=== PATIENT | female | born 1985 | race Caucasian/White ===

== ENCOUNTER 2025-06-30 19:05 | Emergency (ER) | payer OTHER, SELFPAY ==
--- OUTSIDE RECORDS SUMMARY | 2006-08-27 05:25 | XMS_ITS | Continuity of Care Document ---
Author Organization [facility] Address [address] [place] [phone] Phone Care Team Providers Care Transportation Driver Name Role Phone Vilma HATHAWAY, Janine Unavailable Unavaila ble Advance Directives Directive Yes / No Effective Date File Name No Information Encounters Encounter Description Practice Location Reason(s) For Visit Diagnoses Date Provider Providers Copied on Encounter [facility], [address] [place] [address], [id number], tel:[phone] [facility] No Information Vilma Mehta. [address], [place], [id number]. tel:[phone] Family History Family Member Type Diagnosis Age At Onset No Information Payers Payer name Insurance type Covered alliance party ID Authoriza tion(s) No Information Social History Type Description Quantity Date Captured Comments Sex Female Smoking Status No Information Chief Complaint And Reason For Visit No Information Reason For Referral Reason For Referral No Information History Of Present Illness Encounter Date Complaint History Of Prese nt Illness No Information Functional Status Date Functional Assessmen t No Information Instructions Date Instruction Additional Infor mation No Information Assessments Type Assessment Date No Information Patient Care Teams Name Effective Dates (start - stop) Status Members No Information
--- OUTSIDE RECORDS SUMMARY | 2025-03-22 09:30 | XMS_ITS ---
Author Organization [facility] Address [address] [place] [address] Care Team Providers Care Baseball Coach Name Role Phone Tolu Jackson Primary Care Provider Radha Angel [phone] REASON FOR VISIT pain in lower right abdomen Social History Sex Assigned At : Social History Observation Description Sex Assigned At Female Encounters Encounter Location Date Provider Diagnosis [facility] [address] [place] [address] 03/22/2025 Radha Angel Plan Of Treatment No Information Progress Notes * GURVINDER Melissa LDOB:1985 (39 yo F)Acc No.[id number]:03/22/2025 Progress Notes Patient: Sondra jannet Melissa Maria Provider: Sondra Angel Nurse Practitioner :1985 A ge:39 Y S ex:Female Date:03/22/2025 Address:[address] [place], [place] [id number] Pcp:Tolu Jackson Subjective: * Chief Complaints: * P ain in lower right abdomen * Electronic signature of KALEIGH Mendoza on 06/30/2025 at 07:11 PM INSTRUMENT/CONTROL TECHNICIAN Sign off status: Pending * Provider: Sondra Angel Nurse Practitioner Date: 0 03/22/2025 Generated for Printing/Faxing/eTransmitting on: 1 08/30/2024 07:11 PM INSTRUMENT/CONTROL TECHNICIAN
--- OUTSIDE RECORDS SUMMARY | 2025-04-06 09:40 | XMS_ITS ---
Author Organization [facility] Address [address] [place] [address] Care Team Providers Care Costume Cutter Name Role Phone Tolu Jackson Primary Care Provider [phone] Radha Angel [phone] REASON FOR VISIT pain in lower right abdomen Social History Sex Assigned At : Social History Observation Description Sex Assigned At Female Encounters Encounter Location Date Provider Diagnosis [facility] [address] [place] [address] 04/06/2025 Radha Angel Plan Of Treatment No Information Progress Notes * GURVINDER Melissa LDOB:1985 (39 yo F)Acc No.[id number]:04/06/2025 Progress Notes Patient: Sondra mohanraul Melissa Maria Provider: Sondra Angel Nurse Practitioner :1985 A ge:39 Y S ex:Female Date:04/06/2025 Address:[address] [place], [place] [address] [place] [id number] Pcp:Tolu Jackson Subjective: * Chief Complaints: * P ain in lower right abdomen Billing Information: * Procedure Codes: * Electronic signature of KALEIGH Mendoza on 06/30/2025 at 07:11 PM RIPSAW GRADER Sign off status: Pending * Provider: Sondra Angel Nurse Camilla Date: 0 04/06/2025 Generated for Printing/Faxing/eTransmitting on: 08/30/2024 07:11 PM RIPSAW GRADER
[2025-06-30 19:10] VITALS: BP 126/93; PULSE 102; RESP 16; TEMP 36.6; O2SAT 98
--- NOTE | 2025-06-30 19:12 | XRR_ITS ---
PROCEDURE INFORMATION: Exam: XR Left Forearm Exam date and time: 06/30/2025 7:19 PM Age: 39 years old Clinical indication: Injury or trauma; Other: Dog bite; Puncture; Arm, lower; Left TECHNIQUE: Imaging protocol: Radiologic exam of the left forearm. Views: 2 views. COMPARISON: No relevant prior studies available. FINDINGS: Bones/joints: See Soft tissues finding. Soft tissues: Soft tissue swelling over the dorsum of the mid forearm without radiodense foreign body, fracture or dislocation. XR/XR forearm LT 2V [id number] IMPRESSION: Soft tissue swelling over the dorsum of the mid forearm without radiodense foreign body, fracture or dislocation.
--- OUTSIDE RECORDS SUMMARY | 2025-06-30 19:12 | XMS_ITS | Patient Health Record ---
Author Organization [facility] Address [address] [place] [address] Care Team Providers Care Roof Truss Detailer Name Role Phone Tolu Jackson Primary Care Provider Radha Angel Unavailable [phone] Allergies Allergen (clinical drug ingredient) Drug/Non Drug Allergy documented on EMR Reaction Allergy Type Onset Date Status Keflex Unknown Drug Allergy Active metoclopramide Reglan Unknown Drug Allergy Ac tive quetiapine SEROquel Unknown Drug Allergy Active Codeine (allergy only) anaphylaxis Drug Allergy Active Flu Virus Vaccine Unknown Drug Allergy Active Reason For Referral No Information Medications Medication SIG (Take, Route, Frequency, Duration) Notes Start Date End Date Status Lyrica 150 MG Capsule 1 capsule Orally Three Times a day Active Tylenol 325 MG Tablet 2 tablets as needed Orally every 6 hrs Active ProAir HFA 108 (90 Base) MCG/ACT Aerosol Solution 2 puffs as needed Inhalation every 6 hrs; Duration: 30 days 10/05/2017 Active dexAMETHasone Sodium Phosphate 10 MG/ML Solution 1 ml now Injection one time; Duration: 1 days 04/02/2020 Not-Taking/ PRN Escitalopram Oxalate 10 mg Tablet TAKE ONE TABLET BY MOUTH ONCE DAILY; Duration: 90 Active Cyclobenzaprine HCl 5 MG Tablet 1 tablet Orally twice a day or prn for muscle spasms. Dr Gonzalez Not-Taking/ PRN predniSONE 20 MG Tablet 1 tablet Orally Once a day 5 days Active Meloxicam 7.5 mg Tablet TAKE ONE TABLET BY MOUTH ONCE DAILY; Duration: 30 Active Promethazine-DM 6.25-15 MG/5ML Syrup 5 mL as needed Orally every 6 hrs up to 7 days prn Active Fluconazole 150 MG Tablet 1 tablet Orally once 04/22/2021 Not-Taking/ PRN Vibramycin 100 MG Capsule 1 capsule Orally Once a day Active Gabapentin 600 MG Tablet 1 tablet Orally Three time daily; Duration: 30 day(s) Patient is receiving 600mg TID from back doctor. Patient is taking 3600mg QD Not-Taking/ PRN Fluticasone Propionate 50 MCG/ACT Suspension 1 spray in each nostril Nasally Once a day; Duration: 30 day(s) Not-Taking/ PRN Triamcinolone Acetonide 0.5 % Cream 1 application Externally Twice a day; Duration: 14 days 07/07/2022 Not-Taking/ PRN DULoxetine HCl 30 MG Capsule Delayed Release Particles 1 capsule Orally once daily Active Percocet 5-325 MG Tablet 1 tablet as needed Orally every 4 hrs as needed for moderate or severe pain Dr Gonzalez Not-Taking/ PRN Immunizations Vaccine Route Administration Date [facility] [employer] Cov[facility] Vaccine IM Intramuscular 01/09/2021 Administered Social History Tobacco Use: Social History Observation Description Date Details (start date - stop date) Never Smoker NA - NA Sex Assigned At : Social History Observation Description Sex Assigned At Female Social History Miscellaneous: Social Info Question Answer Notes . 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 No Drugs/Alcohol: Social Info Question Answer Notes Alcohol Screen (Audit-C) Did you have a drink containing alcohol in the past year? No Points 0 Interpretation Negative Drugs Have you used drugs other than those for medical reasons in the past 12 months? No DO NOT USE SBIRT 2014 Patient refused/declined SBIRT s creening at this time? No In the past 3 months, how often do you have a drink containing alcohol? Never In the past 3 months, how often do you have 4 or more drinks on one occasion? Females (and Males 65 and older). In the past 3 months, how often do you have 5 or more drinks on one occasion? Males (younger than 65) Never In the past 12 months, did you smoke pot, use another street drug, or use a prescription painkiller, stimulant, or sedative for a non-medical reason? No The cumulative score is 0 A referral is not needed Caffeine Intake: more than 4 cups per day Comprehensive Health Assessm ent Social Info Question Answer Notes Comprehensive Health Assessment Assistance with drug cost? No Assistance with food cost? No Any communication needs? No Any High risk behaviors ? No Any Mental health issues? Yes Any substance abuse ? No Problems understanding meds or dx ? No Has been referred for Comp. Care Plan? No Drug/Alcohol: Social Info Question Answer Notes AUDIT-C (Standard) Did you have a drink containing alcohol in the past year? No Points 0 Interpretation Negative Tobacco Use: Social Info Question Answer Notes Tobacco Control (Standard) Tobacco use: Nonsmoker Are you an ENDS user: Are you an other tobacco user? Y es Electronic Nicotine Delivery System Yes Not to use -Tobacco Use/Smoking Are you a former sm oker How long has it been since you last smoked? 1-5 years Problems Problem Type SNOMED Code ICD Code Onset Dates Problem Status W/U Status Risk Notes Problem Sciatica (43469563) Sciatica (M54.30) Active confirmed Problem Neuropathy (296274554) Neuropathy (G62.9) Active confirmed Problem Sinusitis (06031232) Sinusitis (J32.9) Active confirmed Problem Anxiety (64623264) Anxiety (F41.9) Active confirmed Since las t seen, pt fired from job, pt relates stress has been lifted from shoulders and anxiety is much improved Problem Menopause (224342368) Hot flashes (N95.1) Active confirmed Problem Smoking (13371498) Smoking (F17.200) Active confirmed Low Referred to handoff for inclinic smoking cessation initiation with 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 AND INSTALLER Problem Exacerbation of asthma (845021395) Unspecified asthma with (acute) exacerbation (J45.901) Active confirmed Problem Mixed hyperlipidemia (421722348) Elevated triglycerides with high cholesterol (E78.2) Active confirmed Triglycerides at 1112 with total cholesterol of 310 on recent lab draw Problem Carpal tunnel syndrome of right wrist (027239743514752 ) Carpal tunnel syndrome of right wrist (G56.01) Active confirmed Problem Depressive disorder (disorder) (52920162) Depression, unspecified depression type (F32.9) Active confirmed Problem Obese class I (finding) (433002814703959 ) Obesity (BMI 30.0-34.9) (E66.9) Active confirmed BMI 32.18 Problem Insomnia (614743909) Insomnia, unspecified type (G47.00) Active confirmed Encounters Encounter Location Date Provider Diagnosis [facility] [address] [place] [address] 07/18/2024 Tolu Jackson [address] [facility] [address] [place] [address] 08/25/2024 Tolu Jackson Plan Of Treatment No Information Insurance Providers Payer Name Payer Address Payer Phone Subscriber Number Group Number Insured Name Patient Relationship to Insured Coverage Start Date Coverage End Date [employer] [address] [address] [place] [address] [id number] Melissa Hollins Self - patient is the insured [facility] [address] [place] [address] [id number] Abram Hollins Spouse - patient is the spouse of the insured Medications Administered Medication Instructions Date of Administration Dosage Notes Dexamethasone 10mg 04/02/2020 10 mg Ketorolac 60mg 01/09/2021 60 mg Ketorolac Tromethamine 06/29/2019 2 mL Methylprednisolone 80mg 04/02/2020 80 mL Ondansetron 4mg/2ml 10/13/2019 4 mg Solu-Medrol 125 mg 10/09/2019 125 mg Medical (General) History Medical History History ICD Code Depression, unspecified depression type F32.9 asthma anemia Smoking Allergic rhinitis, unspecifi ed allergic rhinitis trigger, unspecified rhinitis seasonality J30.9 Anxiety F41.9 Dermatitis Acute recurrent maxillary sinusitis Sprain of anterior talofibular ligament of left ankle, initial encounter Other closed fracture of distal end of l eft fibula, initial encounter Surgical History Surgery Date(Month/Year) exploratory surgery salvatory gland 1989 bilateral ankle surgery 2000 2013 D C for retained placenta 2013 biopsy at [facility] ft breast begin results right shoulder 11/2017 carpal tunnel release right 2019 lumbar fusion 03/2022 right mastectomy 10/2022 Hospitalization History Reason Date(Month/Year) lumbar fusion 03/2022 Dizzy passing out 05/2018 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
--- NOTE | 2025-06-30 19:16 | W.ED.ANIMALB ---
Documented by User: SHANNON Hagan 06/30/25 20:23 HPI - Animal Bite General: Chief Complaint: Animal Bite Stated Complaint: DOG ATTACKED Time Seen by Provider: 06/30/25 19:09 Source: patient Mode of arrival: EMS Limitations: no limitations History of Present Illness: Patient is a 39-year-old female presenting to the emergency department by ambulance due to a dog bite from a pit bull just prior to arrival. States that dog was unprovoked and attacked her, biting her to her left arm and scratching her left thigh and side. No active bleeding at this time. Patient is very irritable and a poor historian. Reportedly smoking weed during this incident. States that she is unsure of dog's vaccination status, and unsure where it is at right now. Again she is a poor historian so we will go ahead and begin rabies vaccination series. She does tell me that her tetanus is up-to-date. No sensation changes to distal left arm, full range of motion. No motor deficits. MD complaint: animal bite Onset (ago): minute(s) Animal: dog Mechanism: bite and scratch Location: abdomen Location - Extremities: Left: forearm and thigh Associated symptoms: Deny chills, fever(s) or headache(s) Related Data Previous Rx's ?Medication ?Instructions ?Recorded amoxicillin 875 mg-potassium 1 tab PO BID 5 days #10 tabs 06/30/25 clavulanate 125 mg tablet Allergies Allergy/AdvReac Type Severity Reaction Status Date / Time cephalexin (From Keflex) Allergy Unknown Verified 06/30/25 19:13 codeine Allergy Unknown Verified 06/30/25 19:13 influenza virus vaccine ts Allergy Unknown Verified 06/30/25 19:13 [id number] (36 mos,up) (From Fluarix) metoclopramide (From Reglan) Allergy Unknown Verified 06/30/25 19:13 quetiapine (From Seroquel) Allergy Unknown Verified 06/30/25 19:13 Review of Systems General: Reports: 10 or more systems reviewed and unremarkable except in HPI and below Const: Denies: fever(s) or chills Card: Denies: chest pain Resp: Denies: dyspnea GI: Denies: abdominal pain, nausea, vomiting or diarrhea Musc: Denies: extremity pain or joint pain Skin/Breast: Reports: erythema, skin pain, skin tenderness, skin swelling and new lesions (Dog bite left arm, dog scratch left thigh and left side); Denies: rash Neuro: Denies: headache(s) Physical Exam Const: COMMON NORMALS: no limitations and well nourished OTHER: Tearful, irritable HENMT: COMMON NORMALS: normocephalic and atraumatic HEAD & SCALP: normocephalic and atraumatic Neck/C-Spine: COMMON NORMALS: full ROM, no lymphadenopathy, supple and no meningeal signs Extremity: COMMON NORMALS: full ROM and capillary refill normal NARRATIVE EXTREMITY EXAM: Strength and stations intact distal to the wound to the left upper extremity Neuro: COMMON NORMALS: moves all extremities, no focal motor deficits and no sensory deficits noted MENINGEAL SIGNS: Yes no meningeal signs Skin: COMMON NORMALS: turgor normal NARRATIVE SKIN EXAM: Scattered dog bite lesions to left forearm with underlying skin swelling and erythema Scratch to left thigh and left flank/abdomen GENERAL SKIN EXAM: turgor normal Course Vital Signs: Vital signs: Vital Signs Temperature 98 F 06/30/25 19:10 Pulse Rate 82 06/30/25 20:26 Respiratory Rate 16 06/30/25 19:10 Blood Pressure 110/81 06/30/25 20:26 Pulse Oximetry 100 06/30/25 20:26 Oxygen Delivery Me thod Room Air 06/30/25 20:25 MDM - Animal Bite Medical Decision Making Patient presented after being bit by family members sylvie, up-to-date on vaccinations reportedly and able to be monitored. The wounds to the left forearm are overall superficial and will close by secondary intent, thoroughly irrigated here in the emergency department with 2 L of normal saline. Sterile dressings are applied, and her tetanus was already up-to-date. Will start on prophylactic Augmentin, informed of how to care for the wounds at home and signs and symptoms to watch for that would warrant return to the ED. Will omit rabies vaccination series due to the ability to be monitored and reportedly up-to-date vaccines of the dog. Lab Data Radiology Impressions Forearm X-Ray 06/30/25 19:12 IMPRESSION: Soft tissue swelling over the dorsum of the mid forearm without radiodense foreign body, fracture or dislocation. XR interpretation done by ED provider, pending radiology final review ED provider radiology interpretation(s): No abnormalities on x-ray left forearm. Discharge Plan Discharge Patient Disposition: Home Clinical Impression: Dog bite Qualifiers: Encounter type: initial encounter Qualified Code(s): W54.0XXA - Bitten by dog, initial encounter Condition: Stable Prescriptions: New amoxicillin-pot clavulanate 875-125 mg tablet 1 tab PO BID 5 Days Qty: 10 0RF Discharge Orders: Discharge ED (Routine); Ordered 06/30/25 Ordered By: Meño Ray Referrals: Rosalba Gomez FNP [Primary Care Provider, Nurse Practitioner] Patient Instructions: Patient Portal & Edilberto Instructions Activity Restrictions/Additional Instructions: Dog Bite Discharge Instructions You were treated today for a dog bite to your left arm. Your wound was cleaned and closed, and you are being sent home with antibiotics to help prevent infection. Please follow these instructions carefully: - Wound Care: Keep the wound clean and dry. You may gently wash the area with soap and water once daily, but avoid scrubbing. Pat dry and cover with a clean bandage. Change the bandage daily or if it becomes wet or dirty.Watch for signs of infection, such as increased redness, swelling, warmth, pus, or worsening pain. - Antibiotics: Take amoxicillin-clavulanate (Augmentin) as prescribed, twice daily for 5 days. Finish the entire course, even if you feel better. If you develop diarrhea, rash, or any allergic reaction, contact your healthcare provider. - Pain and Swelling: You may use acetaminophen or ibuprofen for pain, unless otherwise instructed. Elevate your arm to reduce swelling. - Signs to Watch For: Call your doctor or return to the emergency department if you notice: - Fever over 100.4?F (38?C) - Spreading redness or swelling - Pus or foul odor from the wound - Numbness, loss of movement, or increasing pain - Red streaks moving up your arm - Rabies and Tetanus: The dog is being monitored and is believed to be up-to-date on vaccinations, so rabies shots are not needed at this time. If the dog becomes sick or cannot be observed, notify your healthcare provider immediately. If you have not had a tetanus shot in the past 5 years, you may need a booster. - Follow-Up: Schedule a follow-up visit with your healthcare provider in 48 hours, or sooner if you have any concerns. This is important to check for infection and ensure proper healing. - Other Instructions: Avoid strenuous activity with the affected arm until cleared by your provider. Do not allow pets to lick the wound. If you have any questions or concerns, contact your healthcare provider or return to the emergency department. Print Language: Montserratian Coding Level of Care Code ED Vmware Administrator for [facility]ando Fwd Documented by User: Josiah Galindo DO 07/01/25 03:39 HPI - Animal Bite General: Chief Complaint: Animal Bite Stated Complaint: DOG ATTACKED Time Seen by Provider: 06/30/25 19:09 Related Data Previous Rx's ?Medication ?Instructions ?Recorded amoxicillin 875 mg-potassium 1 tab PO BID 5 days #10 tabs 06/30/25 clavulanate 125 mg tablet Allergies Allergy/AdvReac Type Severity Reaction Status Date / Time cephalexin (From Keflex) Allergy Unknown Verified 06/30/25 19:13 codeine Allergy Unknown Verified 06/30/25 19:13 influenza virus vaccine ts Allergy Unknown Verified 06/30/25 19:13 [id number] (36 mos,up) (From Fluarix) metoclopramide (From Reglan) Allergy Unknown Verified 06/30/25 19:13 quetiapine (From Seroquel) Allergy Unknown Verified 06/30/25 19:13 Course Vital Signs: Vital signs: Vital Signs Temperature 98 F 06/30/25 19:10 Pulse Rate 82 06/30/25 20:26 Respiratory Rate 16 06/30/25 19:10 Blood Pressure 110/81 06/30/25 20:26 Pulse Oximetry 100 06/30/25 20:26 Oxygen Delivery Me thod Room Air 06/30/25 20:25 MDM - Animal Bite Medical Decision Making Patient presented after being bit by family members sylvie, up-to-date on vaccinations reportedly and able to be monitored. The wounds to the left forearm are overall superficial and will close by secondary intent, thoroughly irrigated here in the emergency department with 2 L of normal saline. Sterile dressings are applied, and her tetanus was already up-to-date. Will start on prophylactic Augmentin, informed of how to care for the wounds at home and signs and symptoms to watch for that would warrant return to the ED. Will omit rabies vaccination series due to the ability to be monitored and reportedly up-to-date vaccines of the dog. Patient originally seen by Mr. Flor PA-C. I agree with his history, evaluation, and management. Lab Data Radiology Impressions Forearm X-Ray 06/30/25 19:12 IMPRESSION: Soft tissue swelling over the dorsum of the mid forearm without radiodense foreign body, fracture or dislocation. Discharge Plan Discharge Patient Disposition: Home Clinical Impression: Dog bite Qualifiers: Encounter type: initial encounter Qualified Code(s): W54.0XXA - Bitten by dog, initial encounter Condition: Stable Prescriptions: New amoxicillin-pot clavulanate 875-125 mg tablet 1 tab PO BID 5 Days Qty: 10 0RF Discharge Orders: Discharge ED (Routine); Ordered 06/30/25 Ordered By: Meño Ray Referrals: Rosalba Gomez FNP [Primary Care Provider, Nurse Practitioner] Patient Instructions: Patient Portal & Edilberto Instructions Activity Restrictions/Additional Instructions: Dog Bite Discharge Instructions You were treated today for a dog bite to your left arm. Your wound was cleaned and closed, and you are being sent home with antibiotics to help prevent infection. Please follow these instructions carefully: - Wound Care: Keep the wound clean and dry. You may gently wash the area with soap and water once daily, but avoid scrubbing. Pat dry and cover with a clean bandage. Change the bandage daily or if it becomes wet or dirty.Watch for signs of infection, such as increased redness, swelling, warmth, pus, or worsening pain. - Antibiotics: Take amoxicillin-clavulanate (Augmentin) as prescribed, twice daily for 5 days. Finish the entire course, even if you feel better. If you develop diarrhea, rash, or any allergic reaction, contact your healthcare provider. - Pain and Swelling: You may use acetaminophen or ibuprofen for pain, unless otherwise instructed. Elevate your arm to reduce swelling. - Signs to Watch For: Call your doctor or return to the emergency department if you notice: - Fever over 100.4?F (38?C) - Spreading redness or swelling - Pus or foul odor from the wound - Numbness, loss of movement, or increasing pain - Red streaks moving up your arm - Rabies and Tetanus: The dog is being monitored and is believed to be up-to-date on vaccinations, so rabies shots are not needed at this time. If the dog becomes sick or cannot be observed, notify your healthcare provider immediately. If you have not had a tetanus shot in the past 5 years, you may need a booster. - Follow-Up: Schedule a follow-up visit with your healthcare provider in 48 hours, or sooner if you have any concerns. This is important to check for infection and ensure proper healing. - Other Instructions: Avoid strenuous activity with the affected arm until cleared by your provider. Do not allow pets to lick the wound. If you have any questions or concerns, contact your healthcare provider or return to the emergency department. Print Language: Montserr[place]ian Coding Level of Care Code ED Vmware Administrator for [facility]ando Best
[2025-06-30 19:27] VITALS: BP 143/106; PULSE 81; O2SAT 99
[2025-06-30 20:25] VITALS: BP 110/81; PULSE 81; O2SAT 100
[2025-06-30 20:26] VITALS: BP 110/81; PULSE 82; O2SAT 100
== END 2025-06-30 20:34 | disposition home or self-care (01) ==
PROVIDERS: Emergency Provider Physician Assistant; PCP Nurse Practitioner
DX: S51.852A Open bite of left forearm, initial encounter (principal); W54.0XXA Bitten by dog, initial encounter
CPT/HCPCS: 73090; 99283; J9999